=== PATIENT | female | born 1960 | race Caucasian/White ===

== ENCOUNTER → 2017-08-16 | Outpatient (CLI) | payer OTHER ==
[~2017-08-16] MED LIST: ATORVASTATIN CA20 MG PO; GLIPIZIDE10 MG PO; LISINOPRIL AND1 TA1 PO; METFORMIN1000 MG PO; VICTOZA6 MG/ML SC; VITAMIN D1000 IU PO
--- NOTE | 2017-08-16 17:21 | RADIOLOGY REPORT PS360 ---
[id number] VIEWS HISTORY: Left shoulder pain with decreased range of motion INJURY TO LT SHOULDER ORDERING PHYSICIAN: Aj Montgomery MD PATIENT AGE: 56 years COMPARISON: None FINDINGS: There are mild osteoarthritic changes of the acromioclavicular joint and glenohumeral joint. No fracture or dislocation. No significant subacromial stenosis. The small calcific density is present along the inferior aspect of the glenoid and may be due to small degenerative periarticular calcification. Subcortical cystic changes noted in the humeral head anteriorly IMPRESSION: 1. No acute fracture. 2. Osteoarthritic changes
== END ==
LOC: RAD 16:38
DX: S49.92XA Unspecified injury of left shoulder and upper arm, initial encounter (principal)